=== PATIENT | male | born 1990 | race Caucasian/White ===

== ENCOUNTER 2021-06-05 11:46 | Observation (INO) | payer OTHER ==
[~2021-06-05] VITALS: Ht 175.3 cm; Wt 148.1 kg
--- NOTE | 2021-06-05 11:58 | PHYS DOC ---
General Adult HPI: HPI: Patient is a 30 year old male brought in by EMS for evaluation of chest pain. 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 He reports that when he got back in his truck, he began lightheaded and dizzy, felt like he was going to pass out. He then reported having diffuse sharp chest pain. His boss was contacted, it was recommended that he call 911. EMS gave him sublingual nitroglycerin, oral aspirin and 100 mcg of IV fentanyl. The patient reported nausea and vomiting after being given fentanyl. He reports mild persistent chest pain, which is sharp, constant, midsternal, nonradiating. He denies dyspnea, denies pleuritic pain, denies any further dizziness. He denies diaphoresis. He denies lower extremity pain or swelling. No recent travel, surgery, hospitalization. No previous similar symptoms. Review of Systems: Review of Systems: Constitutional: Denies fever or chills. [] Eyes: Denies change in visual acuity. [] HENT: Denies nasal congestion or sore throat. [] Respiratory: Denies cough or shortness of breath. [] Cardiovascular: Chest pain, denies peripheral edema, denies cyanosis, denies syncope GI: Denies abdominal pain. Reports nausea and vomiting. : Denies Rajiv symptoms. Musculoskeletal: Denies back pain or joint pain. [] Integument: Denies rash. [] Neurologic: Denies headache, focal weakness or sensory changes. Reports dizziness, near syncope. Denies syncope, head injury or loss of consciousness. Endocrine: Denies polyuria or polydipsia. [] Lymphatic: Denies swollen glands. [] Psychiatric: Denies depression or anxiety. [] Heart Score: C/O Chest Pain: Yes HEART Score for Chest Pain: HEART Score for Chest Pain Response (Comments) Value History Slighlty/Non-Suspicious 0 ECG Nonspecific Repolarizatio 1 Age < 45 0 Risk Factors 1 or 2 Risk Factors 1 Troponin >1-<3x Normal Limit 1 Total 3 Risk Factors: Risk Factors: DM, Current or recent (<one month) smoker, HTN, HLP, family history of CAD, obesity. Risk Scores: Score 0 - 3: 2.5% MACE over next 6 weeks - Discharge Home Score 4 - 6: 20.3% MACE over next 6 weeks - Admit for Clinical Observation Score 7 - 10: 72.7% MACE over next 6 weeks - Early Invasive Strategies Physical Exam: PE: Constitutional: Well developed, well nourished, no acute distress, non-toxic appearance. Appears older than stated age HENT: Normocephalic, atraumatic, oropharynx patent and clear, mucous memories moist. Eyes: PERRL, EOMI, conjunctiva normal, no discharge. [] Neck: Normal range of motion, no tenderness, supple, no stridor. Achy midline, no JVD. Cardiovascular:Heart rate regular rhythm, 2 posterior tibial and +2 radial pulses bilaterally, no cyanosis, no peripheral edema, warm and well-perfused Lungs & Thorax: Bilateral breath sounds clear to auscultation, no rales, rhonchi or wheezes, equal chest rise, no palpable crepitus or step-offs. Palpation of the anterior mid sternal chest reproduces tenderness. Abdomen: Abdomen is obese, soft, nondistended, nontender to palpation. Skin: Warm, dry, no erythema, no rash. [] Back: No tenderness, no CVA tenderness. [] Extremities: No tenderness, no cyanosis, no clubbing, ROM intact, no edema. No calf tenderness. Neurologic: Alert and oriented X 3, normal motor function, normal sensory function, no focal deficits noted. [] Psychologic: Affect normal, judgement normal, mood normal. [] EKG: EKG: EKG is interpreted at 1153 Rhythm is sinus Rate is 77 bpm [place] is left No STEMI Radiology/Procedures: Radiology/Procedures: IMAGING REPORT Signed PATIENT: JOE HEARN ACCOUNT: [id number] : 1990 LOCATION: ER AGE: 30 SEX: M EXAM STATUS: PRE ER ORD. PHYSICIAN: CASSIE CLIFFORD DO REASON: chest pain PROCEDURE: PORTABLE CHEST 1V EXAM: Chest, single view. HISTORY: Chest pain. COMPARISON: None. FINDINGS: A frontal view of the chest is obtained. There is no infiltrate, pleu ral effusion or pneumothorax. The heart is normal in size. IMPRESSION: No acute pulmonary finding. Electronically signed by: Josie Deshpande MD (06/05/2021 12:18 PM) [id number] DICTATED and SIGNED BY: JOSIE DESHPANDE MD DATE: 06/05/21 [id number] Course & Med Decision Making: Course & Med Decision Making Pertinent Labs and Imaging studies reviewed. (See chart for details) The patient is given IV Toradol here. He is given IV Zofran for nausea. He reports no further chest pain. Vital signs are all stable. First troponin is negative. I did order a serial troponin, and it increased for greater than 10. He remains hemodynamically stable, remains asymptomatic. However, I have recom mended hospitalization for troponin trending, cardiology consultation and further evaluation of his chest pain. He is comfortable with this plan of care. He is accepted for admission by Dr. Canchola. Joyce Disclaimer: Joyce Disclaimer: This electronic medical record was generated, in whole or in part, using a voice recognition dictation system. Departure Departure Impression: Primary Impression: Atypical chest pain Additional Impression: Troponin level elevated Disposition: ADMITTED INPATIENT Admitting Physician: SU (Dr. Canchola) Condition: STABLE Referrals: [facility]CIA MD Scripts Ondansetron Hcl (ONDANSETRON HCL) 4 Mg Tablet 1 TAB PO PRN Q8HRS PRN for VOMITING, #20 TAB 1 Refill Prov: CASSIE CLIFFORD DO 06/05/21 CASSIE CLIFFORD DO Jun 05, 2021 11:58
[2021-06-05 12:16] LABS: BASO % 0 % (0-3); EOS # 0.2 x10^3/uL (0.0-0.7); EOS % 2 % (0-3); HEMATOCRIT 43.1 % (39.0-53.0); HEMOGLOBIN 14.7 g/dL (13.0-17.5); LYMPH # 3.6 x10^3/uL (1.0-4.8); LYMPH % 30 % (24-48); MEAN CORPUSCULAR HEMOGLOBIN 28 pg (25-35); MEAN CORPUSCULAR HGB CONC 34 g/dL (31-37); MEAN CORPUSCULAR VOLUME 82 fL (79-100); MONO # 0.6 x10^3/uL (0.0-1.1); MONO % 5 % (0-9); NEUT # 7.6 x10^3/uL (1.8-7.7); NEUT % 63 % (31-73); PLATELET COUNT 246 x10^3/uL (140-400); RED BLOOD COUNT 5.26 x10^6/uL (4.30-5.70); RED CELL DISTRIBUTION WIDTH 14.5 % (11.5-14.5); WHITE BLOOD COUNT 12.1 x10^3/uL (4.0-11.0)
--- NOTE | 2021-06-05 12:20 | RAD ---
EXAM: Chest, single view. HISTORY: Chest pain. COMPARISON: None. FINDINGS: A frontal view of the chest is obtained. There is no infiltrate, pleural effusion or pneumo thorax. The heart is normal in size. IMPRESSION: No acute pulmonary finding. Electronically signed by: Josie Coppola MD (06/05/2021 12:18 PM) [id number]
[2021-06-05 12:26] LABS: CALCIUM 8.8 mg/dL (8.5-10.1); CREATININE 0.8 mg/dL (0.7-1.3); GFR 114.3; POTASSIUM 3.5 mmol/L (3.5-5.1)
[2021-06-05] MEDS ORDERED: KETOROLAC 15 MG/ML VIAL. IVP ONE (12:30)
--- NOTE | 2021-06-05 12:31 | EKG ---
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
[2021-06-05 12:32] LABS: ALBUMIN 3.5 g/dL (3.4-5.0); ALBUMIN/GLOBULIN RATIO 0.8 (1.0-1.7); MAGNESIUM 1.7 mg/dL (1.8-2.4); TOTAL BILIRUBIN 0.4 mg/dL (0.2-1.0); TOTAL PROTEIN 7.7 g/dL (6.4-8.2)
[2021-06-05 13:29] LABS: BILIRUBIN,URINE NEGATIVE (NEG); CLARITY,URINE CLEAR; COLOR,URINE YELLOW; NITRITE,URINE NEGATIVE (NEG); PH,URINE 7.5 (<5.0-8.0); PROTEIN,URINE NEGATIVE (NEG-TRACE); UROBILINOGEN,URINE 0.2 mg/dL (0.2 mg/dL)
[2021-06-05 13:36] LABS: BARBITURATES NEG (NEG); BENZODIAZEPINES NEG (NEG); CANNABINOIDS POS (NEG); COCAINE NEG (NEG); METHADONE NEG (NEG); OPIATES NEG (NEG); PHENCYCLIDINE NEG (NEG)
[2021-06-05 13:41] LABS: AMPHETAMINE/METHAMPHETAMINE NEG (NEG)
[2021-06-05] MEDS ORDERED: ONDANSETRON PF 4 MG/2 ML VIAL. IVP ONE (13:45)
[2021-06-05 14:14] LABS: HYALINE CASTS, URINE FEW /HPF
[2021-06-05 14:16] LABS: BACTERIA,URINE 0 /HPF (0-FEW); RBC,URINE 0 /HPF (0-2)
[2021-06-05] MEDS ORDERED: ONDA-84 PO (14:24)
[2021-06-05] MEDS ORDERED: ONDANSETRON PF 4 MG/2 ML VIAL. IVP PRN ×2 (17:15→18:45)
[2021-06-05] MEDS ORDERED: ACETAMINOPHEN 325 MG TABLET. PO PRN (17:15)
--- NOTE | 2021-06-05 18:08 | PDOC1 ---
History and Physical Date of Admission Date of Admission DATE: 06/05/21 TIME: 18:07 Identification/Chief Complaint Chief Complaint Syncope, chest pain Source Source: Patient History of Present Illness History of Present Illness Mr. Monroe is a 30-year-old male with no past medical history who comes to the ED via EMS complaining of chest pain. 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 EMS arrived and administered nitroglycerin which improved his chest pain and 325 mg of aspirin as well as 100 mcg of fentanyl. Upon evaluation in ED chest pain resolved. No prior syncopal episodes and no history of seizures. He does not see a physician regularly He does not drink alcohol and recently quit chewing tobacco 6 months ago. He has a strong cardiac history on his mother side with and maternal grandmother having early cardiac disease. Has 2 maternal aunts with DVT and PE. Diabetes all relatives on the maternal side. WBC 12.1, Hb 14.7, platelets 246, NA 143, K3.5, magnesium 1.7, CR 0.8, BUN 11, calcium 8.8, bilirubin 0.4, AST 10, ALT 30, alkaline phosphatase 51, albumin 3.5, lipase 28, high-sensitivity troponin VII second high-sensitivity troponin is 19. Urine drug screen positive for cannabinoids. Urinalysis negative Chest radiograph no acute findings Past Medical History Cardiovascular: No pertinent hx Past Surgical History Past Surgical History: Appendectomy, Tonsillectomy, Other (left knee staph infection I&D 2011) Family History Family History He has a strong cardiac history on his mother side with and maternal grandmother having early cardiac disease. Has 2 maternal aunts with DVT and PE. Diabetes all relatives on the maternal side. Family History: Diabetes, Heart Disease, High Cholestrol, Hypertension Social History Smoke: Quit (2020) ALCOHOL: none Drugs: Marijuana Current Problem List Problem List Problems Medical Problems: (1) Atypical chest pain Status: Acute Current Medications Current Medications Current Medications Ketorolac Tromethamine (Toradol 15mg Vial) 15 mg 1X ONCE IVP Last administered on 06/05/21at 12:26; Start 06/05/21 at 12:30; Stop 06/05/21 at 12:31; Status DC Ondansetron HCl (Zofran) 4 mg 1X ONCE IVP Last administered on 06/05/21at 14:18; Start 06/05/21 at 13:45; Stop 06/05/21 at 13:46; Status DC Ondansetron HCl (Zofran) 4 mg PRN Q8HRS PRN IVP NAUSEA/VOMITING; Start 06/05/21 at 17:15; Stop 06/06/21 at 17:14 Acetaminophen (Tylenol) 650 mg PRN Q6HRS PRN PO MILD PAIN / TEMP > 100.3'F; Start 06/05/21 at 17:15 Active Scripts Active Ondansetron Hcl 4 Mg Tablet 1 Tab PO PRN Q8HRS PRN Allergies Allergies: Coded Allergies: No Known Drug Allergies (Unverified , 06/05/21) ROS General: No: Chills, Night Sweats, Fatigue, Malaise, Appetite, Other PSYCHOLOGICAL ROS: No: Anxiety, Behavioral Disorder, Concentration difficultie, Decreased libido, Depression, Disorientation, Hallucinations, Hostility, Irritablity, Memory difficulties, Mood Swings, Obsessive thoughts, Physical abuse, Sexual abuse, Sleep disturbances, Suicidal ideation, Other Eyes: No Blurry vision, No Decreased vision, No Double vision, No Dry eyes, No Excessive tearing, No Eye Pain, No Itchy Eyes, No Loss of vision, No Photophobia, No Scotomata, No Uses contacts, No Uses glasses, No Other HEENT: No: Heacaches, Visual Changes, Hearing change, Nasal congestion, Nasal discharge, Oral lesions, Sinus pain, Sore Throat, Epistaxis, Sneezing, Snoring, Tinnitus, Vertigo, Vocal changes, Other ALLERGY AND IMMUNOLOGY: No: Hives, Insect Bite Sensitivity, Itchy/Watery Eyes, Nasal Congestion, Post Nasal Drip, Seasonal Allergies, Other Hematological and Lymphatic: No: Bleeding Problems, Blood Clots, Blood Transfusions, Brusing, Night Sweats, Pallor, Swollen Lymph Nodes, Other ENDOCRINE: No: Breast Changes, Galactorrhea, Hair Pattern Changes, Hot Flashes, Malaise/lethargy, Mood Swings, Palpitations, Polydipsia/polyuria, Skin Changes, Temperature Intolerance, Unexpected Weight Changes, Other Breast: No New/Changing Breast Lumps, No Nipple changes, No Nipple discharge, No Other Respiratory: No: Cough, Hemoptysis, Orthopnea, Pleuritic Pain, Shortness of breath, SOB with excertion, Sputum Changes, Stridor, Tachypnea, Wheezing, Other Cardiovascular: yes Chest Pain; No Palpitations, No Orthopnea, No Paroxysmal Noc. Dyspnea, No Edema, No Lt He adedness, No Other Gastrointestinal: Yes Nausea; No Vomiting, No Abdominal Pain, No Diarrhea, No Constipation, No Melena, No Hematochezia, No Other Genitourinary: No Dysuria, No Frequency, No Incontinence, No Hematuria, No Retention, No Discharge, No Urgency, No Pain, No Flank Pain, No Other, No , No , No , No , No , No , No Musculoskeletal: No Gait Disturbance, No Joint Pain, No Joint Stiffness, No Joint Swelling, No Muscle Pain, No Muscular Weakness, No Pain In:, No Swelling In:, No Other Neurological: No Behavorial Changes, No Bowel/Bladder ControlChng, No Confusion, No Dizziness, No Gait Disturbance, No Headaches, No Impaired Coord/balance, No Memory Loss, No Numbness/Tingling, No Seizures, No Speech Problems, No Tremors, No Visual Changes, No Weakness, No Other Skin: No Dry Skin, No Eczema, No Hair Changes, No Lumps, No Mole Changes, No Mottling, No Nail Changes, No Pruritus, No Rash, No Skin Lesion Changes, No Other, No Acne Physical Exam General: Alert, Oriented X3, Cooperative, No acute distress HEENT: Atraumatic, PERRLA, EOMI, Mucous membr. moist/pink Lungs: Clear to auscultation, Normal air movement Heart: S1S2, RRR, no thrills, no rubs, no gallops, no murmurs Abdomen: Normal bowel sounds, Soft, No tenderness, No hepatosplenomegaly, No masses Extremities: No clubbing, No cyanosis, No edema, Normal pulses, No tenderness/swelling Skin: No rashes, No breakdown, No significant lesion, Other (Multiple tattoos) Neuro: Normal gait, Normal speech, Strength at 5/5 X4 ext, Normal tone, Sensation intact, Cranial nerves 3-12 NL, Reflexes 2+ Psych/Mental Status: Mental status NL, Mood NL Vitals Vitals Vital Signs Date Time Temp Pulse Resp B/P (MAP) Pulse Ox O2 Delivery O2 Flow Rate FiO2 06/05/21 16:34 68 16 126/64 (84) 97 06/05/21 11:48 98.6 Room Air 98.6 Labs Labs Laboratory Tests Test 06/05/21 11:55 06/05/21 13:09 06/05/21 15:40 White Blood Count 12.1 x10^3/uL (4.0-11.0) Red Blood Count 5.26 x10^6/uL (4.30-5.70) Hemoglobin 14.7 g/dL (13.0-17.5) Hematocrit 43.1 % (39.0-53.0) Mean Corpuscular Volume 82 fL (79-100) Mean Corpuscular Hemoglobin 28 pg (25-35) Mean Corpuscular Hemoglobin Concent 34 g/dL (31-37) Red Cell Distribution Width 14.5 % (11.5-14.5) Platelet Count 246 x10^3/uL (140-400) Neutrophils (%) (Auto) 63 % (31-73) Lymphocytes (%) (Auto) 30 % (24-48) Monocytes (%) (Auto) 5 % (0-9) Eosinophils (%) (Auto) 2 % (0-3) Basophils (%) (Auto) 0 % (0-3) Neutrophils # (Auto) 7.6 x10^3/uL (1.8-7.7) Lymphocytes # (Auto) 3.6 x10^3/uL (1.0-4.8) Monocytes # (Auto) 0.6 x10^3/uL (0.0-1.1) Eosinophils # (Auto) 0.2 x10^3/uL (0.0-0.7) Basophils # (Auto) 0.0 x10^3/uL (0.0-0.2) Sodium Level 143 mmol/L (136-145) Potassium Level 3.5 mmol/L (3.5-5.1) Chloride Level 104 mmol/L (98-107) Carbon Dioxide Level 23 mmol/L (21-32) Anion Gap 16 (6-14) Blood Urea Nitrogen 11 mg/dL (8-26) Creatinine 0.8 mg/dL (0.7-1.3) Estimated GFR (Cockcroft-Gault) 114.3 BUN/Creatinine Ratio 14 (6-20) Glucose Level 135 mg/dL (70-99) Calcium Level 8.8 mg/dL (8.5-10.1) Magnesium Level 1.7 mg/dL (1.8-2.4) Total Bilirubin 0.4 mg/dL (0.2-1.0) Aspartate Amino Transf (AST/SGOT) 10 U/L (15-37) Alanine Aminotransferase (ALT/SGPT) 30 U/L (16-63) Alkaline Phosphatase 51 U/L (46-116) Troponin I High Sensitivity 7 ng/L (4-75) 19 ng/L (4-75) Total Protein 7.7 g/dL (6.4-8.2) Albumin 3.5 g/dL (3.4-5.0) Albumin/Globulin Ratio 0.8 (1.0-1.7) Lipase 28 U/L (73-393) Urine Collection Type Unknown Urine Color Yellow Urine Clarity Clear Urine pH 7.5 (<5.0-8.0) Urine Specific [place] 1.015 (1.000-1.030) Urine Protein Negative mg/dL (NEG-TRACE) Urine Glucose (UA) Negative mg/dL (NEG) Urine Ketones (Stick) Negative mg/dL (NEG) Urine Blood Negative (NEG) Urine Nitrite Negative (NEG) Urine Bilirubin Negative (NEG) Urine Urobilinogen Dipstick 0.2 mg/dL (0.2 mg/dL) Urine Leukocyte Esterase Negative (NEG) Urine RBC 0 /HPF (0-2) Urine WBC 1-4 /HPF (0-4) Urine Squamous Epithelial Cells Mod /LPF Urine Bacteria 0 /HPF (0-FEW) Urine Hyaline Casts Few /HPF Urine Mucus Slight /LPF Urine Opiates Screen Neg (NEG) Urine Methadone Screen Neg (NEG) Urine Barbiturates Neg (NEG) Urine Phencyclidine Screen Neg (NEG) Urine Amphetamine/Methamphetamine Neg (NEG) Urine Benzodiazepines Screen Neg (NEG) Urine Cocaine Screen Neg (NEG) Urine Cannabinoids Screen Pos (NEG) Urine Ethyl Alcohol Neg (NEG) Laboratory Tests Test 06/05/21 11:55 06/05/21 13:09 06/05/21 15:40 White Blood Count 12.1 x10^3/uL (4.0-11.0) Red Blood Count 5.26 x10^6/uL (4.30-5.70) Hemoglobin 14.7 g/dL (13.0-17.5) Hematocrit 43.1 % (39.0-53.0) Mean Corpuscular Volume 82 fL (79-100) Mean Corpuscular Hemoglobin 28 pg (25-35) Mean Corpuscular Hemoglobin Concent 34 g/dL (31-37) Red Cell Distribution Width 14.5 % (11.5-14.5) Platelet Count 246 x10^3/uL (140-400) Neutrophils (%) (Auto) 63 % (31-73) Lymphocytes (%) (Auto) 30 % (24-48) Monocytes (%) (Auto) 5 % (0-9) Eosinophils (%) (Auto) 2 % (0-3) Basophils (%) (Auto) 0 % (0-3) Neutrophils # (Auto) 7.6 x10^3/uL (1.8-7.7) Lymphocytes # (Auto) 3.6 x10^3/uL (1.0-4.8) Monocytes # (Auto) 0.6 x10^3/uL (0.0-1.1) Eosinophils # (Auto) 0.2 x10^3/uL (0.0-0.7) Basophils # (Auto) 0.0 x10^3/uL (0.0-0.2) Sodium Level 143 mmol/L (136-145) Potassium Level 3.5 mmol/L (3.5-5.1) Chloride Level 104 mmol/L (98-107) Carbon Dioxide Level 23 mmol/L (21-32) Anion Gap 16 (6-14) Blood Urea Nitrogen 11 mg/dL (8-26) Creatinine 0.8 mg/dL (0.7-1.3) Estimated GFR (Cockcroft-Gault) 114.3 BUN/Creatinine Ratio 14 (6-20) Glucose Level 135 mg/dL (70-99) Calcium Level 8.8 mg/dL (8.5-10.1) Magnesium Level 1.7 mg/dL (1.8-2.4) Total Bilirubin 0.4 mg/dL (0.2-1.0) Aspartate Amino Transf (AST/SGOT) 10 U/L (15-37) Alanine Aminotransferase (ALT/SGPT) 30 U/L (16-63) Alkaline Phosphatase 51 U/L (46-116) Troponin I High Sensitivity 7 ng/L (4-75) 19 ng/L (4-75) Total Protein 7.7 g/dL (6.4-8.2) Albumin 3.5 g/dL (3.4-5.0) Albumin/Globulin Ratio 0.8 (1.0-1.7) Lipase 28 U/L (73-393) Urine Collection Type Unknown Urine Color Yellow Urine Clarity Clear Urine pH 7.5 (<5.0-8.0) Urine Specific [place] 1.015 (1.000-1.030) Urine Protein Negative mg/dL (NEG-TRACE) Urine Glucose (UA) Negative mg/dL (NEG) Urine Ketones (Stick) Negative mg/dL (NEG) Urine Blood Negative (NEG) Urine Nitrite Negative (NEG) Urine Bilirubin Negative (NEG) Urine Urobilinogen Dipstick 0.2 mg/dL (0.2 mg/dL) Urine Leukocyte Esterase Negative (NEG) Urine RBC 0 /HPF (0-2) Urine WBC 1-4 /HPF (0-4) Urine Squamous Epithelial Cells Mod /LPF Urine Bacteria 0 /HPF (0-FEW) Urine Hyaline Casts Few /HPF Urine Mucus Slight /LPF Urine Opiates Screen Neg (NEG) Urine Methadone Screen Neg (NEG) Urine Barbiturates Neg (NEG) Urine Phencyclidine Screen Neg (NEG) Urine Amphetamine/Methamphetamine Neg (NEG) Urine Benzodiazepines Screen Neg (NEG) Urine Cocaine Screen Neg (NEG) Urine Cannabinoids Screen Pos (NEG) Urine Ethyl Alcohol Neg (NEG) Images Images chest radiograph: A frontal view of the chest is obtained. There is no infiltrate, pleural effusion or pneumothorax. The heart is normal in size. IMPRESSION: No acute pulmonary finding. VTE Prophylaxis Ordered VTE Prophylaxis Devices: Yes VTE Pharmacological Prophylaxi: No Assessment/Plan Assessment/Plan Syncope - no head injury. Likely vasovagal with temperature shift, exerting himself in cold weather. Will replace magnesium. Check carotid Dopplers and echocardiogram. Telemetry. Chest pain -atypical. Will check D-dimer. Echocardiogram, overnight telemetry repeat 1 last troponin. Cardiology consultation given extensive family cardiac history on maternal side. Morbid obesity - counseled on lifestyle modification Hypomagnesemia - replace Leukocytosis - likely reactive FEN - Cardiac diet PPX - ambulatory FULL CODE DIspo - observation for syncope and chest pain Justifications for Admission Other Justification JOJO GRAHAM MD Jun 05, 2021 18:08
--- NOTE | 2021-06-05 18:32 | NUR ---
Patient arrived to room 664 from ER at 1832. Patient placed on quality assurance monitor final. VSS. No complaints of pain at this time. Patient A&OX4. Dinner tray ordered.
[2021-06-05] MEDS ORDERED: diphenhydrAMINE HCL 25 MG CAPSULE PO PRN (18:45)
[2021-06-05 18:50] VITALS: BP 127/69
[2021-06-05] MEDS ORDERED: POTASSIUM CHLORIDE 20 MEQ TABLET.ER. PO ONE (19:30)
[2021-06-05] MEDS ORDERED: MAGNESIUM SULFATE 1GM 100 ML IV ONE (19:30)
--- NOTE | 2021-06-05 21:36 | RAD ---
EXAM: Bilateral carotid duplex with waveform analysis. CLINICAL HISTORY: Reason: Syncope, concern for carotid or vertebrobasilar insuffiency TECHNIQUE: Longitudinal and transverse sonographic images of the bilateral carotid arteries was perfo rmed utilizing grayscale, color and spectral Doppler techniques. COMPARISON: None FINDINGS: Right Carotid: No visible stenosis or significant plaque. Left Carotid: No visible stenosis or significant plaque. Vertebrals: Antegrade flow bilaterally. Right: PSV CCA (cm/s): 141 PSV ICA (cm/s): 117 EDV ICA (cm/s): 27 PSV ECA (cm/s): 166 ICA/CCA Ratio: 1.1 Left: PSV CCA (cm/s): 132 PSV ICA (cm/s): 83 EDV ICA (cm/s): 28 PSV ECA (cm/s): 127 ICA/CCA Ratio: 0.6 IMPRESSION: Normal carotid Doppler ultrasound. Consensus Panel Villegas-scale and Doppler US Criteria for Diagnosis of ICA Stenosis Degree of Stenosis (%) ICA PSV (Cm/sec) Plaque Estimate (%)* Normal <125 None <50 <125 <50 50-69 125-230 >50 >70 but < near occlusion >230 >50 Near occlusion High, low, or undetectable Visible Total occlusion Undetectable Visible, no detectable lumen *Plaque estimate (diameter reduction) with villegas-scale and color Doppler US Degree of Stenosis (%) ICA/CCA PSV Ratio ICA EDV (cm/sec) Normal <2.0 <40 <50 <2.0 <40 50-69 2.0-4.0 40-100 >70 but < near occlusion >4.0 >100 Near occlusion Variable Variable Total occlusion Not applicable Not applicable Electronically signed by: Kylie Rodriguez MD (06/05/2021 9:34 PM) [facility]
[2021-06-05 23:03] VITALS: BP 134/58
[2021-06-06 02:29] VITALS: BP 138/56
[2021-06-06 07:00] VITALS: BP 134/84
--- NOTE | 2021-06-06 10:17 | PDOC2 ---
SHANA MANN INDUSTRIAL MANUFACTURING TECHNICIAN 06/06/21 1017: CARDIAC CONSULT DATE OF CONSULT Date of Consult DATE: 06/06/21 TIME: 10:01 REASON FOR CONSULT Reason for Consult: Chest pain REFERRING PHYSICIAN Referring Physician: Gill SOURCE Source: Chart review, Patient HISTORY OF PRESENT ILLNESS HISTORY OF PRESENT ILLNESS This is a pleasant 30 yo male admitted for complains of chest pain. This was sharp across his chest. The pain is reproducible particularly to left chest. 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 He got out and help pushed the car without difficulty. No CP nor SOA at that time. This is the first time this happened to him. Later while in his vehicle he started having shapr chest pain as described. No vomiting, jaw tightness or shoulder issue. No falls or any recent injury. PAST MEDICAL HISTORY Past Medical History Left knee infection PAST SURGICAL HISTORY Past Surgical History: Appendectomy, Tonsillectomy, Other (left knee surgery) FAMILY HISTORY Family History noncontributory to CV on immediate family members SOCIAL HISTORY Social History uses CBD Smoke: No ALCOHOL: none Drugs: None Lives: with Family CURRENT MEDICATIONS CURRENT MEDICATIONS Current Medications Medications (Trade) Dose Ordered Sig/Matias Route PRN Reason Start Time Stop Time Status Last Admin Dose Admin Ketorolac Tromethamine (Toradol 15mg Vial) 15 mg 1X ONCE IVP 06/05/21 12:30 06/05/21 12:31 DC 06/05/21 12:26 Ondansetron HCl (Zofran) 4 mg 1X ONCE IVP 06/05/21 13:45 06/05/21 13:46 DC 06/05/21 14:18 Magnesium Sulfate/ Dextrose 100 ml @ 100 mls/hr 1X ONCE IV 06/05/21 19:30 06/05/21 20:29 DC 06/05/21 20:03 Potassium Chloride (Klor-Con) 40 meq 1X ONCE PO 06/05/21 19:30 06/05/21 19:31 DC 06/05/21 20:02 ALLERGIES ALLERGIES: Coded Allergies: No Known Drug Allergies (Unverified , 06/05/21) ROS Review of System 14 point ROS evaluated with pertinent positives noted per HPI PHYSICAL EXAM General: Alert, Oriented X3, Cooperative, No acute distress HEENT: Atraumatic, Mucous membr. moist/pink Lungs: Clear to auscultation, Normal air movement Heart: Regular rate, Normal S1, Normal S2, No murmurs Abdomen: Soft, No tenderness Extremities: No cyanosis, No edema Skin: No breakdown, No significant lesion Neuro: Normal speech, Sensation intact Psych/Mental Status: Mental status NL, Mood NL MUSCULOSKELETAL: Full range of motion without pain VITALS/I&O VITALS/I&O: Vital Signs Date Time Temp Pulse Resp B/P (MAP) Pulse Ox O2 Delivery O2 Flow Rate FiO2 06/06/21 08:00 Room Air 06/06/21 07:00 98.2 69 18 134/84 (101) 97 98.2 I & O 06/05/21 06/05/21 06/06/21 15:00 23:00 07:00 Intake Total 240 ml 0 ml Output Total 525 ml Balance -285 ml 0 ml LABS Lab: Laboratory Tests Test 06/05/21 11:55 06/05/21 13:09 06/05/21 15:40 06/05/21 19:00 White Blood Count 12.1 x10^3/uL (4.0-11.0) H Red Blood Count 5.26 x10^6/uL (4.30-5.70) Hemoglobin 14.7 g/dL (13.0-17.5) Hematocrit 43.1 % (39.0-53.0) Mean Corpuscular Volume 82 fL (79-100) Mean Corpuscular Hemoglobin 28 pg (25-35) Mean Corpuscular Hemoglobin Concent 34 g/dL (31-37) Red Cell Distribution Width 14.5 % (11.5-14.5) Platelet Count 246 x10^3/uL (140-400) Neutrophils (%) (Auto) 63 % (31-73) Lymphocytes (%) (Auto) 30 % (24-48) Monocytes (%) (Auto) 5 % (0-9) Eosinophils (%) (Auto) 2 % (0-3) Basophils (%) (Auto) 0 % (0-3) Neutrophils # (Auto) 7.6 x10^3/uL (1.8-7.7) Lymphocytes # (Auto) 3.6 x10^3/uL (1.0-4.8) Monocytes # (Auto) 0.6 x10^3/uL (0.0-1.1) Eosinophils # (Auto) 0.2 x10^3/uL (0.0-0.7) Basophils # (Auto) 0.0 x10^3/uL (0.0-0.2) Sodium Level 143 mmol/L (136-145) Potassium Level 3.5 mmol/L (3.5-5.1) Chloride Level 104 mmol/L (98-107) Carbon Dioxide Level 23 mmol/L (21-32) Anion Gap 16 (6-14) H Blood Urea Nitrogen 11 mg/dL (8-26) Creatinine 0.8 mg/dL (0.7-1.3) Estimated GFR (Cockcroft-Gault) 114.3 BUN/Creatinine Ratio 14 (6-20) Glucose Level 135 mg/dL (70-99) H Calcium Level 8.8 mg/dL (8.5-10.1) Magnesium Level 1.7 mg/dL (1.8-2.4) L Total Bilirubin 0.4 mg/dL (0.2-1.0) Aspartate Amino Transferase (AST) 10 U/L (15-37) L Alanine Aminotransferase (ALT) 30 U/L (16-63) Alkaline Phosphatase 51 U/L (46-116) Troponin I High Sensitivity 7 ng/L (4-75) 19 ng/L (4-75) 16 ng/L (4-75) Total Protein 7.7 g/dL (6.4-8.2) Albumin 3.5 g/dL (3.4-5.0) Albumin/Globulin Ratio 0.8 (1.0-1.7) L Lipase 28 U/L (73-393) L Urine Collection Type Unknown Urine Color Yellow Urine Clarity Clear Urine pH 7.5 (<5.0-8.0) Urine Specific [place] 1.015 (1.000-1.030) Urine Protein Negative mg/dL (NEG-TRACE) Urine Glucose (UA) Negative mg/dL (NEG) Urine Ketones (Stick) Negative mg/dL (NEG) Urine Blood Negative (NEG) Urine Nitrite Negative (NEG) Urine Bilirubin Negative (NEG) Urine Urobilinogen Dipstick 0.2 mg/dL (0.2 mg/dL) Urine Leukocyte Esterase Negative (NEG) Urine RBC 0 /HPF (0-2) Urine WBC 1-4 /HPF (0-4) Urine Squamous Epithelial Cells Mod /LPF Urine Bacteria 0 /HPF (0-FEW) Urine Hyaline Casts Few /HPF Urine Mucus Slight /LPF Urine Opiates Screen Neg (NEG) Urine Methadone Screen Neg (NEG) Urine Barbiturates Neg (NEG) Urine Phencyclidine Screen Neg (NEG) Urine Amphetamine/Methamphetamine Neg (NEG) Urine Benzodiazepines Screen Neg (NEG) Urine Cocaine Screen Neg (NEG) Urine Cannabinoids Screen Pos (NEG) Urine Ethyl Alcohol Neg (NEG) D-Dimer (Marielle) < 0.27 ug/mlFEU Thyroid Stimulating Hormone (TSH) 1.829 uIU/mL (0.358-3.74) Laboratory Tests 06/05/21 11:55 Laboratory Tests 06/05/21 11:55 ASSESSMENT/PLAN ASSESSMENT/PLAN 1. Atypical CP: suspect MSK, doubt ACS. reproducible 2. Metabolic syndrome: per PCP 3. Morbid obesity 4. CBD use 5. Mild Hypomagnesemia: replaced Recommendations 1. No further cardiac w/u 2. wt loss 3. FLP SJ MURCIA MD 06/06/21 1317: CARDIAC CONSULT ASSESSMENT/PLAN ASSESSMENT/PLAN Patient seen and examined He is feeling significantly better today. I agree with our nurse practitioners assessment and plan. Chest pain. Atypical. Pain is reproducible and occurred after helping push a car out of the snow. Rhythm and blood pressure have been stable overnight. No significant elevation in enzymes. Continue present treatment. Obesity with metabolic syndrome. Discussed weight loss with the patient. CBD use as above. Mild hypomagnesemia. Replaced. SHANA MANN APRN Jun 06, 2021 10:17 SJ MURCIA MD Jun 06, 2021 13:17
[2021-06-06 10:34] VITALS: BP 121/75
[2021-06-06 10:38] LABS: CHOLESTEROL/HDL RATIO 4.4
--- NOTE | 2021-06-06 12:40 | NUR ---
SS following for discharge planning. SS reviewed pt chart and discussed with pt RN. Pt is from home and is currently on room air. Cardiology consulted. Discharge plan is currently to home when medically ready for discharge. SS will continue to follow for discharge planning.
--- NOTE | 2021-06-06 12:47 | DISCH ---
DISCHARGE INSTRUCTIONS Condition on Discharge Condition on Discharge: Stable Activity After Discharge Activity Instructions for Disc: Resume previous activity Lifting Instructions after Dis: Do not lift >10 pounds Exercise Instruction after Dis: Walk 30 min, 5 x per week Driving Instructions after Dis: Do not drive today Weight Bearing Status after Di: As tolerated Diet after Discharge Diet after Discharge: Cardiac Follow-Up Follow up with: PCP within 2 weeks of discharge Follow Up With: Cardiology as needed SMITA BONILLA MD Jun 06, 2021 12:47
--- NOTE | 2021-06-06 14:52 | CARD ---
MR#: [id number] Date of Study: 06/06/2021 Ordering Physician: JOJO GRAHAM, Referring Physician: JOJO GRAHAM, Tech: John Preston [facility] APPROVED REPORT EXAM: Two-dimensional and M-mode echocardiogram with Doppler and color Doppler. Other Information Quality : AverageHR: 67bpm Rhythm : NSR INDICATION Syncope RISK FACTORS Obesity Family History 2D DIMENSIONS Left Atrium(2D)4.2 (1.6-4.0cm)IVSd0.9 (0.7-1.1cm) Aortic Root(2D)3.3 (2.0-3.7cm)LVDd5.8 (3.9-5.9cm) LVOT Diameter2.4 (1.8-2.4cm)PWd0.9 (0.7-1.1cm) LVDs3.7 (2.5-4.0cm)FS (%) 36.4 % SV108.0 mlLVEF(%)65.4 (>50%) Aortic Valve AoV Peak Tomasz.120.6cm/sAoV VTI24.0cm AO Peak GR.5.8mmHgLVOT Peak Tomasz.110.5cm/s AO Mean GR.3mmHgAVA (VMAX)4.11cm2 Mitral Valve MV E Jlotngeb64.4cm/sMV E Peak Gr.3mmHg MV DECEL [id number] A Ocrpjvlc36.0cm/s MV E Mean Gr.1mmHgE/A Ratio1.1 Pulmonary Valve PV Peak Mdgoqyzb708.3cm/s Tricuspid Valve TR P. Ynvibdeu439jn/sTR Peak Gr.20mmHg Pulmonary Vein S1 Gkyvfmmb13.9cm/sD2 Ghxrefef51.7cm/s LEFT VENTRICLE The left ventricle is normal size. There is normal left ventricular wall thickness. The left ventricu lar systolic function is normal and the ejection fraction is within normal range. EF55% There is norm al LV segmental wall motion. The left ventricular diastolic function and filling is normal for age. N o left ventricle thrombus noted on this study. There is no ventricular septal defect visualized. Ther e is no left ventricular aneurysm. There is no mass noted in the left ventricle. RIGHT VENTRICLE The right ventricle is normal size. There is normal right ventricular wall thickness. The right ventr icular systolic function is normal. ATRIA The left atrium size is normal. The right atrium size is normal. The interatrial septum is intact wit h no evidence for an atrial septal defect or patent foramen ovale as noted on 2-D or Doppler imaging. AORTIC VALVE The aortic valve is normal in structure and function. The aortic valve is trileaflet. Doppler and Col or Flow revealed no significant aortic regurgitation. There is no significant aortic valvular stenosi s. There is no aortic valvular vegetation. MITRAL VALVE The mitral valve is normal in structure and function. There is no evidence of mitral valve prolapse. There is no mitral valve stenosis. Doppler and Color Flow revealed no mitral valve regurgitation note d. TRICUSPID VALVE The tricuspid valve is normal in structure and function. Doppler and Color Flow revealed no tricuspid valve regurgitation noted. There is no tricuspid valve prolapse or vegetation. There is no tricuspid valve stenosis. PULMONIC VALVE The pulmonary valve is normal in structure and function. Doppler and Color Flow revealed no pulmonic valvular regurgitation. There is no pulmonic valvular stenosis. GREAT VESSELS The aortic root is normal in size. The ascending aorta is normal in size. The IVC is normal in size a nd collapses >50% with inspiration. PERICARDIAL EFFUSION There is no pleural effusion. There is no evidence of significant pericardial effusion. Critical Notification Critical Value: No <Conclusion> The left ventricular systolic function is normal and the ejection fraction is within normal range. EF 55% There is normal LV segmental wall motion. Signed by : Theo Mobley, Electronically Approved : 06/06/2021 14:52:27
--- NOTE | 2021-06-06 16:01 | NUR ---
pt is discharged home with self care via ambulation via this RN at 1543. pt is in stable condition. pt has all belongings with him. pt recieved discharge instructions and stated he had no further questions for me.
--- NOTE | 2021-06-11 21:30 | PDOC3 ---
[facility]-Discharge Summary Date of Admission: Date of Admission: Jun 05, 2021 Date of Discharge: Date of Discharge: Jun 06, 2021 Discharge Diagnosis: Discharge Diagnosis: Syncope - no head injury. Likely vasovagal with temperature shift, exerting himself in cold weather. Will replace magnesium. Check carotid Dopplers and echocardiogram. Telemetry. Chest pain -atypical. Will check D-dimer. Echocardiogram, overnight telemetry repeat 1 last troponin. Cardiology consultation given extensive family cardiac history on maternal side. Morbid obesity - counseled on lifestyle modification Hypomagnesemia - replace Leukocytosis - likely reactive Consults: Consults: Per cardiology: ASSESSMENT/PLAN 1. Atypical CP: suspect MSK, doubt ACS. reproducible 2. Metabolic syndrome: per PCP 3. Morbid obesity 4. CBD use 5. Mild Hypomagnesemia: replaced Recommendations 1. No further cardiac w/u 2. wt loss 3. FLP SJ MURCIA MD 06/06/21 1317: CARDIAC CONSULT ASSESSMENT/PLAN ASSESSMENT/PLAN Patient seen and examined He is feeling significantly better today. I agree with our nurse practitioners assessment and plan. Chest pain. Atypical. Pain is reproducible and occurred after helping push a car out of the snow. Rhythm and blood pressure have been stable overnight. No significant elevation in enzymes. Continue present treatment. Obesity with metabolic syndrome. Discussed weight loss with the patient. CBD use as above. Mild hypomagnesemia. Replaced. Hospital Course: Hospital Course: 30-year-old male with no past medical history who comes to the ED via EMS complaining of chest pain. 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 EMS arrived and administered nitroglycerin which improved his chest pain and 325 mg of aspirin as well as 100 mcg of fentanyl. Upon evaluation in ED chest pain resolved. No prior syncopal episodes and no history of seizures. He does not see a physician regularly He does not drink alcohol and recently quit chewing tobacco 6 months ago. He has a strong cardiac history on his mother side with and maternal grandmother having early cardiac disease. Has 2 maternal aunts with DVT and PE. Diabetes all relatives on the maternal side. WBC 12.1, Hb 14.7, platelets 246, NA 143, K3.5, magnesium 1.7, CR 0.8, BUN 11, calcium 8.8, bilirubin 0.4, AST 10, ALT 30, alkaline phosphatase 51, albumin 3.5, lipase 28, high-sensitivity troponin VII second high-sensitivity troponin is 19. Urine drug screen positive for cannabinoids. Urinalysis negative Chest radiograph no acute findings By day of discharge, pt was clinically stable, chest pain free and ready for discharge. Rest of hospital course was uneventful Disposition: Disposition/Orders: D/C to Home Activity: Activity: Resume previous activity Diet: Diet: Cardiac Medications: Home Meds Discontinued Reported Medications Info (NO KNOWN MEDICATIONS PRIOR TO ADMISSTION) Each, 1 EACH for , EACH 06/05/21 No Active Prescriptions or Reported Meds Total Time: Total Time: Total time spent was 32 minutes in preparing scripts and discharge planning with SW and RN. Patient seen and examined on day of Discharge. Justicifation of Admission Dx: Justifications for Admission: Justification of Admission Dx: Yes Angina: Symp at Rest SMITA BONILLA MD Jun 11, 2021 21:30
== END 2021-06-06 15:43 | disposition home or self-care (01) ==
LOC: ER 11:46 → 6 SOUTH 16:39
PROVIDERS: ADMIT Internal Medicine; ATTEND Internal Medicine
DX: R07.89 Other chest pain (principal); R55 Syncope and collapse; D72.829 Elevated white blood cell count, unspecified; E83.42 Hypomagnesemia; E66.01 Morbid (severe) obesity due to excess calories; E88.81 Metabolic syndrome and other insulin resistance; R77.8 Other specified abnormalities of plasma proteins; Z90.49 Acquired absence of other specified parts of digestive tract; Z79.899 Other long term (current) drug therapy; Z98.890 Other specified postprocedural states; Z87.891 Personal history of nicotine dependence; Z68.42 Body mass index [BMI] 45.0-49.9, adult
CPT/HCPCS: 36415; 71045; 80053; 80061; 80307; 81001; 83690; 83735; 84443; 84484; 85025; 85379; 93005; 93306; 93880; 96365; 96366; 96375; 99285; G0378; J1885; J2405; J3475; G0379; C8929

== ENCOUNTER 2021-06-21 21:34 | Emergency (ER) | payer SELFPAY ==
[~2021-06-21] VITALS: Ht 175.3 cm; Wt 145.1 kg
[~2021-06-21 21:34] MED LIST: ONDA-84 PO
[2021-06-21 22:29] LABS: BASO % 0 % (0-3); EOS # 0.2 x10^3/uL (0.0-0.7); EOS % 2 % (0-3); HEMATOCRIT 42.2 % (39.0-53.0); HEMOGLOBIN 14.6 g/dL (13.0-17.5); LYMPH # 3.8 x10^3/uL (1.0-4.8); LYMPH % 35 % (24-48); MEAN CORPUSCULAR HEMOGLOBIN 28 pg (25-35); MEAN CORPUSCULAR HGB CONC 35 g/dL (31-37); MEAN CORPUSCULAR VOLUME 81 fL (79-100); MONO # 0.6 x10^3/uL (0.0-1.1); MONO % 5 % (0-9); NEUT # 6.2 x10^3/uL (1.8-7.7); NEUT % 58 % (31-73); PLATELET COUNT 236 x10^3/uL (140-400); RED CELL DISTRIBUTION WIDTH 13.9 % (11.5-14.5); WHITE BLOOD COUNT 10.8 x10^3/uL (4.0-11.0)
--- NOTE | 2021-06-21 22:33 | PHYS DOC ---
Past Medical History Past Surgical History: Appendectomy, Tonsillectomy, Other Additional Past Surgical Histo: left knee Smoking Status: Former Smoker Alcohol Use: None General Adult EDM: Chief Complaint: PSYCH EVALUATION HPI: HPI: Patient is a 30 year [id number] male presents for evaluation of depression and self-harm. Patient states he is currently under a lot of stress. Prior to arrival stress came to ahead Patient caused self-harm by punching himself in the head. Patient currently denies any headache he had no loss of conscious he denies any visual changes or nausea. Patient denies any homicidal ideation. Patient states at the age of 15 he was admitted to a psychiatric facility due to cutting of his wrist. Patient denies any alcohol or drug abuse. On exam patient is tearful but he is cooperative. Patient brought to the emergency department by his significant other. Review of Systems: Review of Systems: Constitutional: Denies fever or chills. [] Eyes: Denies change in visual acuity. [] HENT: Denies nasal congestion or sore throat. [] Respiratory: Denies cough or shortness of breath. [] Cardiovascular: Denies chest pain or edema. [] GI: Denies abdominal pain, nausea, vomiting, bloody stools or diarrhea. [] : Denies dysuria. [] Musculoskeletal: Denies back pain or joint pain. [] Integument: Denies rash. [] Neurologic: Denies headache, focal weakness or sensory changes. [] Endocrine: Denies polyuria or polydipsia. [] Lymphatic: Denies swollen glands. [] Psychiatric: Positive depression positive Heart Score: C/O Chest Pain: N/A Risk Factors: Risk Factors: DM, Current or recent (<one month) smoker, HTN, HLP, family history of CAD, obesity. Risk Scores: Score 0 - 3: 2.5% MACE over next 6 weeks - Discharge Home Score 4 - 6: 20.3% MACE over next 6 weeks - Admit for Clinical Observation Score 7 - 10: 72.7% MACE over next 6 weeks - Early Invasive Strategies Allergies: Allergies: Allergies Coded Allergies Type Severity Reaction Last Updated Verified No Known Drug Allergies 06/21/21 No Physical Exam: PE: General: alert, no acute distress. Skin: warm, dry and intact, no erythema, no rash. HENT: bilateral external ears normal, oropharynx moist, nose normal. Head:: Normocephalic, contusion swelling left forehead Neck: Trachea midline. Eyes: EOMI, Normal conjunctiva, No drainage CARDIOVASCULAR: Regular rate and rhythm RESPIRATORY: No respiratory distress Back: Full range of motion. MUSCULOSKELETAL: Full range of motion of bilateral upper and lower extremities. GASTROINTESTINAL: Abdomen soft without rebound or guarding. NEUROLOGICAL: Alert and noted to person, place and time. No neurological deficits observed Psychiatric: Cooperative. Tearful Current Patient Data: Vital Signs: Vital Signs Date Time Temp Pulse Resp B/P (MAP) Pulse Ox O2 Delivery O2 Flow Rate FiO2 06/21/21 21:59 98.0 121 20 140/99 (113) 100 Room Air 98.0 EKG: EKG: [] Performed at 2202 Rate 89 Normal sinus rhythm No ST elevation No ST depression No acute NV Radiology/Procedures: Radiology/Procedures: [] Course & Med Decision Making: Course & Med Decision Making Pertinent Labs and Imaging studies reviewed. (See chart for details) [] Dragon Disclaimer: Dragon Disclaimer: This electronic medical record was generated, in whole or in part, using a voice recognition dictation system. Departure Departure Impression: Primary Impression: Depression Additional Impression: Head contusion Disposition: HOME / SELF CARE / HOMELESS Condition: STABLE Referrals: NO PCP (PCP) Patient Instructions: Depression, Adult Additional Instructions: Patient given follow-up information for mental health. Patient provided did contact information to [facility], [facility], [facility] Phone [phone] Scripts No Active Prescriptions or Reported Meds JOSE MIGUEL DO DO Jun 21, 2021 22:33
[2021-06-21 22:39] LABS: BARBITURATES NEG (NEG); BENZODIAZEPINES NEG (NEG); CANNABINOIDS POS (NEG); COCAINE NEG (NEG); METHADONE NEG (NEG); OPIATES NEG (NEG); PHENCYCLIDINE NEG (NEG)
[2021-06-21 22:39] LABS: CALCIUM 8.7 mg/dL (8.5-10.1); CREATININE 0.9 mg/dL (0.7-1.3); GFR 99.8; POTASSIUM 3.4 mmol/L (3.5-5.1)
[2021-06-21 22:40] LABS: AMPHETAMINE/METHAMPHETAMINE NEG (NEG)
[2021-06-21 22:42] LABS: ACETAMIN < 2 mcg/ml (10-30); ETHANOL < 10 mg/dL (0-10); SALIC 1.3 mg/dL (2.8-20.0)
[2021-06-21 22:45] LABS: ALBUMIN 3.9 g/dL (3.4-5.0); TOTAL BILIRUBIN 0.3 mg/dL (0.2-1.0); TOTAL PROTEIN 7.8 g/dL (6.4-8.2)
--- NOTE | 2021-06-22 01:18 | EKG ---
[facility] [address] [place] [address] Test Date: 2021-06-21 Test Time: 22:02:38 Pat Name: JOE HEARN Department: Room: Gender: M Medical Chemist: : 1990 Requested By: JOSE MIGUEL DO Order Number: [id number] Reading MD: Theo Mobley MD Measurements Intervals Lillian Rate: 89 P: 29 NM: 144 QRS: -4 QRSD: 88 T: 26 QT: 338 QTc: 412 Interpretive Statements SINUS RHYTHM Electronically Signed On 06-23-2021 10:00:20 TRAINS DISPATCHER SUPERVISOR by Theo Mobley MD
[2021-06-22 03:09] VITALS: BP 114/59
== END 2021-06-22 03:10 | disposition home or self-care (01) ==
LOC: ER 21:34
DX: S00.93XA Contusion of unspecified part of head, initial encounter (principal); F32.9 Major depressive disorder, single episode, unspecified; Z87.891 Personal history of nicotine dependence; X83.8XXA Intentional self-harm by other specified means, initial encounter; Y93.89 Activity, other specified; Y92.89 Other specified places as the place of occurrence of the external cause; Y99.8 Other external cause status
CPT/HCPCS: 36415; 80053; 80307; 80329; 85025; 87426; 93005; 99284; G0480